=== PATIENT | female | born 1970 | race Caucasian/White ===

== ENCOUNTER → 2022-01-24 | Outpatient (CLI) | payer BC, SELFPAY ==
--- NOTE | 2022-01-24 07:53 | CT_ITS ---
INDICATION: CHRONIC SINUSITIS EXAMINATION: CT SINUSES - CT Sinuses W/O Contrast Injection TECHNIQUE: Helically acquired images were obtained of the paranasal sinuses. A radiation dose optimization technique was used for this scan. IV Contrast dosage and agent: None. COMPARISON: None. FINDINGS: FRONTAL SINUSES AND RECESSES: Clear. ETHMOID AIR CELLS: Clear. MAXILLARY SINUSES: Clear. OSTIOMEATAL COMPLEXES: Clear and normally formed. SPHENOID SINUSES: Clear. SPHENOETHMOIDAL RECESSES: Clear. ANCILLARY FINDINGS: NASAL TURBINATES: Unremarkable. NASAL SEPTUM: Minimal leftward bowing. ORBITS: Unremarkable. VISUALIZED DENTITION: Unremarkable. INTRACRANIAL: Anterior temporal skull middle cranial fossa arachnoid granulations noted. CT/Sinus/Facial Bone IMPRESSION: Negative CT of the sinuses. Electronically Signed: Ramirez Smith MD at 1:16 EDT ,
== END | disposition home or self-care (01) ==
PROVIDERS: Referring Provider Otolaryngology; Visit Provider Otolaryngology
DX: J32.9 Chronic sinusitis, unspecified (principal)
CPT/HCPCS: 70486